=== PATIENT | female | born 1960 | race Caucasian/White ===

== ENCOUNTER 2022-07-16 16:53 | Emergency (ER) | payer OTHER ==
[2022-07-16 17:17] VITALS: BP 121/79; PULSE 75; RESP 18; TEMP 97.9; BMI 31.7
[2022-07-16] MEDS ORDERED: KETOROLAC TROMETHAMINE 30 MG/1 ML VIAL IM ONE (19:20)
[2022-07-16] MEDS ORDERED: KETOROLAC TROMETHAMINE 30 MG/1 ML VIAL ONE (19:38)
== END 2022-07-16 19:48 | disposition home or self-care (01) ==
LOC: JERFT 16:53
PROC: 3E023GC Introduction of Other Therapeutic Substance into Muscle, Percutaneous Approach (ICD-10-PCS; principal; 2022-07-16)
DX: M54.50 Low back pain, unspecified (principal)
CPT/HCPCS: 99284-25

== ENCOUNTER 2023-07-01 13:49 | Emergency (ER) | payer OTHER ==
[2023-07-01 14:28] VITALS: BP 98/67; PULSE 81; RESP 17; TEMP 97.3; BMI 28.3
[2023-07-01] MEDS ORDERED: SODIUM CHLORIDE 0.9% 1000 ML INFUS.BAG IV ONE (17:29)
[2023-07-01] MEDS ORDERED: DEXAMETHASONE SOD PHOSPHATE 10 MG/1 ML VIAL IVPUSH ONE (17:29)
[2023-07-01] MEDS ORDERED: FAMOTIDINE 20 MG/50 ML IVPB 20 MG/50 ML MG IVPB ONE ×2 (17:30→17:47)
[2023-07-01] MEDS ORDERED: DEXAMETHASONE SOD PHOSPHATE 10 MG/1 ML VIAL ONE (17:47)
[2023-07-01 18:28] LABS: HEMATOCRIT 38.6 % (32.4-45.2); HEMOGLOBIN 12.8 GM/dL (10.7-15.3); MCH 31.2 pg (25.7-33.7); MCHC 33.1 g/dl (32.0-36.0); MEAN CELL VOLUME 94.2 fl (80-96); MEAN PLT VOLUME 8.8 fl (7.5-11.1); PLATELET COUNT 240 10^3/uL (134-434); RBC 4.09 M/mm3 (3.60-5.2); RDW 13.8 % (11.6-15.6); WHITE BLOOD COUNT 3.7 K/mm3 (4.0-10.0)
[2023-07-01 18:59] LABS: POTASSIUM 4.4 mmol/L (3.5-5.1)
[2023-07-01 19:01] LABS: CALCIUM 10.2 mg/dL (8.5-10.1)
[2023-07-01 19:02] LABS: ALBUMIN 3.2 g/dl (3.4-5.0); BLOOD UREA NITROGEN 10.8 mg/dL (7-18)
[2023-07-01 19:05] LABS: CREATININE 0.7 mg/dL (0.55-1.3)
[2023-07-01 19:06] LABS: BILIRUBIN,TOTAL 0.3 mg/dL (0.2-1); TOT PROT 7.5 g/dl (6.4-8.2)
== END 2023-07-01 19:46 | disposition home or self-care (01) ==
LOC: JERFT 13:49
PROC: 3E033GC Introduction of Other Therapeutic Substance into Peripheral Vein, Percutaneous Approach (ICD-10-PCS; principal; 2023-07-01)
PROC: 3E033GC Introduction of Other Therapeutic Substance into Peripheral Vein, Percutaneous Approach (ICD-10-PCS; 2023-07-01)
PROC: 3E033GC Introduction of Other Therapeutic Substance into Peripheral Vein, Percutaneous Approach (ICD-10-PCS; 2023-07-01)
DX: L30.9 Dermatitis, unspecified (principal); R21 Rash and other nonspecific skin eruption; L29.9 Pruritus, unspecified
CPT/HCPCS: 36415; 80053; 85027; 99284-25; J1100

== ENCOUNTER 2024-12-12 12:21 | Emergency (ER) | payer OTHER ==
[2024-12-12 12:31] VITALS: BP 102/79; PULSE 78; RESP 19; TEMP 98.7; BMI 34.5
[2024-12-12] MEDS ORDERED: ACETAMINOPHEN 500 MG TABLET (FP) ONE (13:46)
[2024-12-12] MEDS: ACETAMINOPHEN 500 MG TABLET (FP) PO ONE (13:48)
== END 2024-12-12 13:55 | disposition home or self-care (01) ==
LOC: JERFT 12:21
DX: M25.531 Pain in right wrist (principal)
CPT/HCPCS: 99283-25